=== PATIENT | female | born 1995 | race Caucasian/White ===

== ENCOUNTER 2022-06-23 10:26 | Day surgery (SDC) | payer OTHER, SELFPAY ==
[2022-06-09 09:41] VITALS: BMI 30.9
[2022-06-10 11:26] VITALS: BMI 30.6
--- NOTE | 2022-06-23 10:36 | P.PNAN_ITS ---
Anes - Initial Pre Proc Eval Procedure: Operation Date: 06/23/22 12:00 Proposed Procedures p Esophagogastroduodenoscopy - Vitor Eagle MD Date/Time: 06/23/22 10:36 Surgeon: Vitor Eagle MD Pre Op Diagnosis: Nausea and Vomitting, Abdominal Pain Patient Data Age: 27 Gender: F Height: 1.55 m Weight: 73.5 kg Allergies Allergy/AdvReac Type Severity Reaction Status Date / Time No Known Allergies Allergy Verified 06/10/22 11:22 Home Medications Medication Instructions Recorded Confirmed Type dicyclomine 10 mg capsule 10 mg PO TID PRN abdominal 06/05/22 06/10/22 Rx discomfort #90 caps omeprazole 20 mg capsule,delayed 20 mg PO DAILY #30 caps 06/05/22 06/10/22 Rx release Patient hx anesthesia problems: none Family hx anesthesia problems: none Results Review: All pre-operative results and documents have been reviewed as part of the pre- operative evaluation. [facility] Past Medical History Medical History CALEB positive (~10/2019) Bilateral hand pain BMI 27.0-27.9,adult BMI 30.0-30.9,adult Inflammatory arthritis Family History Family History Grandparent Heart disease Cerebrovascular accident Father Tobacco abuse Mother Tobacco abuse Rheumatoid arthritis Lupus Sibling No problems noted. Social History Social History Smoking status: Never smoker Tobacco type: cigarettes Second hand tobacco smoke exposure: Yes Alcohol intake: never Alcohol use details: rarely Substance use: current Substance use type: marijuana Other substance usage details: several times per week Living arrangements: with family Additional occupation/education comments: house cleaning Gender identity (if verbalized by the patient): Female Spiritual care concerns: No Agree to blood products: Yes Anes - Eval Final PreProcedure Day of Procedure 06/23/22 10:36 Patient weight: overweight Heart: regular rate and rhythm Lungs: clear to auscultation Airway: Mallampati scale class II Neurological: alert and oriented Last oral intake: >/= 8 hours ASA classification: II Emergent: no Anesthetic plan: proceed Anesthesia type and monitoring: general GIVS and standard monitoring Results Review: All pre-operative results and documents have been reviewed as part of the pre- operative evaluation. Informed Consent: The patient's anesthetic plan and its attendant risks and benefits were discussed with the patient/family/POA. Questions were solicited and answers provided to the satisfaction of the patient/family/POA.
[2022-06-23 10:40] VITALS: BP 112/75; PULSE 79; RESP 20; TEMP 36.7; O2SAT 100
[2022-06-23 11:00] VITALS: BMI 30.8
[2022-06-23] MEDS: LACTATED RINGERS 1,000 ML 150 ML IV CONT (11:04)
--- NOTE | 2022-06-23 11:12 | WPDHPUPDATE1 ---
History and Physical Update Update Date/Time: 06/23/22 11:12 History and Physical has been reviewed, including an updated exam of the patient. There are NO changes in the patient's condition. Risks, benefits, and alternatives have been discussed and questions answered. Patient agrees to proceed with procedure.
[2022-06-23 11:24] VITALS: BP 100/64; PULSE 70; RESP 12; O2SAT 99
--- NOTE | 2022-06-23 11:24 | WPDANESPN ---
Anes - Prog Note Post-Op Date/Time: 06/23/22 11:24 Cardiovascular status: normal Respiratory status: normal Airway patency: baseline Mental status: baseline Post-Op hydration status: normal Vital Signs: Last Vital Signs Temp 36.7 C 06/23/22 10:40 Pulse 79 06/23/22 10:40 Resp 20 06/23/22 10:40 BP 112/75 06/23/22 10:40 Pulse Ox 100 06/23/22 10:40 O2 Del Method Room Air 06/23/22 10:40 Pain Score (VAS): 0 I/O: Intake & Output 06/22/22 06/23/22 06/23/22 23:59 07:59 15:59 Intake Total 200 Balance 200 Patient Feedback: Patient satisfied with anesthetic care.
[2022-06-23 11:34] VITALS: BP 117/74; PULSE 74; RESP 13; O2SAT 99
[2022-06-23 11:44] VITALS: BP 101/60; PULSE 87; RESP 13; O2SAT 99
== END 2022-06-23 12:00 | disposition home or self-care (01) ==
PROVIDERS: PCP Family Medicine; Visit Provider Internal Medicine Gastroenterology
PROC: 0DJ08ZZ Inspection of Upper Intestinal Tract, Via Natural or Artificial Opening Endoscopic (ICD-10-PCS; CPT 43235; principal; 2022-06-23 12:00)
DX: K21.9 Gastro-esophageal reflux disease without esophagitis (principal)
CPT/HCPCS: 43239

== ENCOUNTER 2022-06-23 13:00 | Outpatient (NON) | payer OTHER, SELFPAY | END 2022-06-23 13:01 | disposition home or self-care (01) | LOC: ANHLAB 06-24 08:14 | PROVIDERS: PCP Family Medicine; Visit Provider Internal Medicine Gastroenterology | DX: K21.9 Gastro-esophageal reflux disease without esophagitis (principal) | CPT/HCPCS: 88305 ==

== ENCOUNTER 2022-07-06 08:03 | Outpatient (CLI) | payer OTHER, SELFPAY ==
--- NOTE | ~2022-07-06 | US_ITS ---
US abdomen limited INDICATION: Abdomen pain. Nausea and vomiting. PROCEDURE: Realtime right upper abdominal ultrasound. COMPARISON: No prior studies for comparison. FINDINGS: The pancreas is normal without focal mass or pancreatic ductal dilation. Liver echotexture is normal without focal mass or intrahepatic biliary dilatation. There is normal directional flow i n the portal vein. The gallbladder is normal without stones, gallbladder wall thickening or pericholecystic fluid. Comm on bile duct measures 3 mm. No sonographic Casas's sign. IMPRESSION: 1: Normal limited abdominal ultrasound. Reviewed, dictated and finalized at location B.
== END 2022-07-06 08:04 | disposition home or self-care (01) ==
PROVIDERS: PCP Family Medicine; Visit Provider Nurse Practitioner Family
DX: R10.9 Unspecified abdominal pain (principal)
CPT/HCPCS: 76705

== ENCOUNTER 2025-07-27 09:02 | Outpatient (CLI) | payer SELFPAY ==
--- NOTE | ~2025-07-27 | MMUS_ITS ---
EXAMINATION: MM diagnostic angela BI w julio c, US breast RT limited HISTORY: Palpable right breast abnormality TECHNIQUE: Additional 3-D tomosynthesis images of the breasts were performed and synthetic 2-D images were generated. CAD analysis was submitted and interpreted. High resolution Limited right breast ultrasound was performed. COMPARISON: None BREAST PARENCHYMAL COMPOSITION: Dense: The breasts are extremely dense, which lowers the sensitivity of mammography. FINDINGS: MAMMOGRAPHIC FINDINGS: There is an obscured mass in the upper outer quadrant of the right breast corresponding to the area of palpable concern. No suspicious calcifications or architectural distortion. ULTRASOUND: Limited right breast ultrasound: At 10:00, 8 cm from the nipple there is an oval circumscribed parallel oriented hypoechoic mass measuring 2.3 x 2.7 x 1.6 cm without internal vascularity. There is posterior acoustic enhancement. This corresponds to the mammographic and palpable abnormality. IMPRESSION: 1. Circumscribed parallel oriented hypoechoic right breast mass measuring 2.7 cm at 10:00, 8 cm from the nipple. This is likely benign given the patient's age and sonographic appearance. 2. Recommend 6 month follow-up Limited right breast ultrasound BI-RADS category 3, probably benign findings. Reviewed, dictated and finalized at location B. [employer] IMPRESSION: 1. Circumscribed parallel oriented hypoechoic right breast mass measuring 2.7 c m at 10:00, 8 cm from the nipple. This is likely benign given the patient's age and sonographic appearance. 2. Recommend 6 month follow-up Limited right breast ultrasound BI-RADS category 3, probably benign findings.
== END 2025-07-27 09:03 | disposition home or self-care (01) ==
PROVIDERS: PCP Family Medicine; Visit Provider Nurse Practitioner Family
DX: N63.10 Unspecified lump in the right breast, unspecified quadrant (principal); R23.4 Changes in skin texture; R92.8 Other abnormal and inconclusive findings on diagnostic imaging of breast
CPT/HCPCS: 76642; 77062; 77066; G0279